=== PATIENT | female | born 1970 | race Caucasian/White ===

== ENCOUNTER → 2021-07-18 14:54 | Outpatient (BNVA) | payer OTHER, SELFPAY | PROVIDERS: PCP Internal Medicine; Visit Provider Nurse Practitioner Family | DX: G47.19 Other hypersomnia (principal) ==

== ENCOUNTER → 2021-10-03 15:10 | Outpatient (REF) | payer OTHER, SELFPAY | LOC: HO.SL 15:10 | PROVIDERS: PCP Internal Medicine; Visit Provider Nurse Practitioner Family | DX: R06.81 Apnea, not elsewhere classified (principal); R40.0 Somnolence; R06.83 Snoring | CPT/HCPCS: 95806 ==